=== PATIENT | male | born 1940 | race Caucasian/White ===

== ENCOUNTER → 2020-12-12 | Outpatient (CLI) | payer MEDICARE ==
[~2020-12-12] MED LIST: APIX5TAB PO; ASCO100018 PO; ATOR20TA37 PO; CALC-534 PO; CHOL10003 PO; CYCL10TA2 PO; DIPH25CA61 PO; DULA1.5P SC; ERGO500017 PO; HYDR-2214 PO; ICOS1CAP PO; INSU300I SC; IPRA15SP NAS; LIDO700A20 TD; LOSA100T14 PO; MELA5TAB14 PO; METF500T27 PO; METO25TA35 PO; MIRALAX PO; MULT-658 PO; OXYB5TAB10 PO; POTASSIUM PO; PREG150C PO; SIME125C67 PO; TAMS-11 PO; VITAMIN E PO; ZOLP5TAB6 PO; [UNRECOGNIZED DRUG - CODE] PO
[2020-12-12 12:13] LABS: MICROSCOPIC INDICATED
[2020-12-12 12:15] LABS: BASOPHILS % (AUTO) 1 % (0-1); EOSINOPHILS % (AUTO) 2 % (1-7); LYMPHOCYTES % (AUTO) 34 % (22-44); MEAN CORPUSCULAR HEMOGLOBIN 29.8 pg (27.5-34.5); MEAN CORPUSCULAR HGB CONC 33.3 g/dL (33.2-36.2); MEAN PLATELET VOLUME 10.3 fL (7.4-10.4); MONOCYTES % (AUTO) 9 % (2-9); NEUTROPHILS % (AUTO) 54 % (42-75); PLATELET COUNT 134 x10^3/uL (130-400); RED CELL DISTRIBUTION WIDTH 13.9 % (9.4-14.8)
[2020-12-12 12:19] LABS: INTERNATIONAL NORMALIZED RATIO 1.1 (0.93-1.1); PROTHROMBIN TIME 11.8 Seconds (9.6-11.5)
[2020-12-12 12:20] LABS: ALANINE AMINOTRANSFERASE 16 U/L (12-78); ALBUMIN 3.4 g/dL (3.4-5.0); CALCIUM 8.4 mg/dL (8.5-10.1); CREATININE 0.72 mg/dL (0.7-1.3)
[2020-12-12 12:23] LABS: ALKALINE PHOSPHATASE 104 U/L (45-117); BILIRUBIN,TOTAL 0.6 mg/dL (0.2-1.0); TOTAL PROTEIN 6.6 g/dL (6.4-8.2)
[2020-12-12 12:29] LABS: ANION GAP 6 mmol/L (5-15); CHLORIDE 109 mmol/L (98-107)
== END | disposition home or self-care (01) ==
LOC: STAR 11:23
PROVIDERS: ATTEND Urology
DX: Z01.818 Encounter for other preprocedural examination (principal); N40.1 Benign prostatic hyperplasia with lower urinary tract symptoms; I44.0 Atrioventricular block, first degree; I45.10 Unspecified right bundle-branch block
CPT/HCPCS: 36415; 80053; 81001; 85025; 85610; 87077; 87086; 87106; 87186; 93005

== ENCOUNTER 2020-12-23 05:39 | Inpatient (IN) | payer MEDICARE ==
[~2020-12-23] VITALS: Ht 175.3 cm; Wt 90.3 kg
[2020-12-23] MEDS ORDERED: LACTATED RINGERS 1,000 ML IV SCH (06:30)
[2020-12-23] MEDS ORDERED: CHLORHEXIDINE 15 ML UDC PO ONE (06:30)
[2020-12-23] MEDS ORDERED: FENTANYL PF 250 MCG/5ML ONE (06:35)
[2020-12-23] MEDS ORDERED: PROPOFOL 10 MG/ML, 20ML ONE (06:37)
[2020-12-23] MEDS ORDERED: ROCURONIUM 10MG/ML,5ML ONE (06:37)
[2020-12-23] MEDS ORDERED: GLYCOPYRROLATE 0.2MG/1ML, 5ML ONE (06:37)
[2020-12-23] MEDS ORDERED: NEOSTIGMINE 1 MG/ML, 10ML ONE (06:37)
[2020-12-23 06:49] VITALS: BP 109/70
[2020-12-23] MEDS ORDERED: CIPROFLOXACIN/PMX 400MG/200ML 0 ML ONE (07:01)
[2020-12-23] MEDS ORDERED: MEPERIDINE/PF 25MG/0.5ML IVPush PRN (07:30)
[2020-12-23] MEDS ORDERED: ONDANSETRON 2MG/ML, 2ML IVPush PRN (07:30)
[2020-12-23] MEDS ORDERED: LABETALOL 5MG/ML, 20ML IV PRN (07:30)
[2020-12-23] MEDS ORDERED: ACETAMINOPHEN 325 MG TABLET PO PRN (07:30)
[2020-12-23] MEDS ORDERED: hydrALAzine 20 MG/ML, 1ML IV PRN (07:30)
[2020-12-23] MEDS ORDERED: OXYcodone 5 MG/5 ML ORAL.SOL UDC PO PRN (07:30)
[2020-12-23] MEDS ORDERED: HYDROmorphone 1 MG/ML, 1ML INJ IVPush PRN (07:30)
[2020-12-23] MEDS ORDERED: morphine SULFATE 10 MG/ML, 1ML IVPush PRN (07:30)
[2020-12-23] MEDS ORDERED: AMPICILLIN 2 GM ONE (07:32)
[2020-12-23] MEDS ORDERED: GENTAMICIN 80 MG/2 ML ONE (07:33)
[2020-12-23] MEDS ORDERED: FENTANYL PF 100 MCG/2ML ONE (08:54)
[2020-12-23] MEDS ORDERED: OXYcodone 5 MG/5 ML ORAL.SOL UDC ONE (08:54)
[2020-12-23] MEDS: FENTANYL PF 100 MCG/2ML IV PRN ×2 (08:57→09:03)
[2020-12-23] MEDS ORDERED: KETOROLAC 30 MG/1 ML ONE (09:17)
[2020-12-23] MEDS ORDERED: KETOROLAC 30 MG/1 ML IVPush SCH (09:30)
[2020-12-23 10:08] VITALS: BP 117/67
[2020-12-23] MEDS: INSULIN LISPRO 100 UNITS/ML, PEN LOW DOSE SS SQ-INSULIN SCH ×3 (11:00→21:00)
[2020-12-23] MEDS ORDERED: ONDANSETRON 2MG/ML, 2ML IV PRN (11:00)
[2020-12-23] MEDS ORDERED: LIDODERM 5% PATCH TD PRN (11:00)
[2020-12-23] MEDS ORDERED: D5%-LACTATED RINGERS 1,000 ML IV SCH (11:00)
[2020-12-23] MEDS: CIPROFLOXACIN/PMX 400MG/200ML 200 ML IVPB SCH (13:17)
[2020-12-23] MEDS: AMPICILLIN 1 GM in SODIUM CHLORIDE 0.9% 50 ML IVPB SCH ×2 (13:18→19:32)
[2020-12-23 13:28] VITALS: BP 123/66
[2020-12-23] MEDS: KETOROLAC 30 MG/1 ML IV SCH ×2 (15:49→21:06)
[2020-12-23] MEDS: CYCLOBENZAPRINE 10 MG TABLET PO SCH ×2 (15:49→21:06)
[2020-12-23] MEDS: PREGABALIN 150 MG CAPSULE PO SCH ×2 (15:49→21:06)
[2020-12-23 16:37] VITALS: BP 156/79
[2020-12-23 20:06] VITALS: BP 138/71
[2020-12-24] MEDS: CIPROFLOXACIN/PMX 400MG/200ML 200 ML IVPB SCH (00:25)
[2020-12-24] MEDS: HYDROcodone/APAP 5/325 TABLET PO PRN ×2 (00:25→06:26)
[2020-12-24 00:30] VITALS: BP 118/73
[2020-12-24] MEDS: KETOROLAC 30 MG/1 ML IV SCH ×3 (03:20→15:30)
[2020-12-24 04:35] VITALS: BP 112/70
[2020-12-24 05:35] LABS: ANION GAP 5 mmol/L (5-15); CALCIUM 8.4 mg/dL (8.5-10.1); CHLORIDE 108 mmol/L (98-107); CREATININE 0.78 mg/dL (0.7-1.3)
[2020-12-24] MEDS: INSULIN LISPRO 100 UNITS/ML, PEN LOW DOSE SS SQ-INSULIN SCH ×2 (06:23→12:24)
[2020-12-24 07:14] VITALS: BP 128/59
[2020-12-24] MEDS ORDERED: CHOLECALCIFEROL 5,000u TAB PO SCH (09:00)
[2020-12-24] MEDS ORDERED: IPRATROPIUM NASAL 0.03%, 30ML NAS SCH (09:00)
[2020-12-24] MEDS ORDERED: TAMSULOSIN 0.4 MG CAP.ER.24H PO SCH (09:00)
[2020-12-24] MEDS ORDERED: LOSARTAN 100 MG TAB PO SCH (09:00)
[2020-12-24] MEDS ORDERED: POLYETHYLENE GLYCOL 17 GM PACKET PO SCH (09:00)
[2020-12-24] MEDS ORDERED: METOPROLOL TARTRATE 25 MG TAB PO SCH (09:00)
[2020-12-24] MEDS: CYCLOBENZAPRINE 10 MG TABLET PO SCH ×2 (09:41→15:30)
[2020-12-24] MEDS: PREGABALIN 150 MG CAPSULE PO SCH ×2 (09:42→15:29)
[2020-12-24 13:10] VITALS: BP 125/61
[2020-12-24 16:20] VITALS: BP 158/70
== END 2020-12-24 16:40 | disposition home or self-care (01) | DRG 714 ==
LOC: OUT 05:39 → 4NE 10:04 → OUT 19:26 → 4NE 19:27 → DCLOUNGE 12-24 16:30
PROVIDERS: ADMIT Urology; ATTEND Urology
PROC: 0VT08ZZ Resection of Prostate, Via Natural or Artificial Opening Endoscopic (ICD-10-PCS; principal; 2020-12-23 07:30)
DX: N40.1 Benign prostatic hyperplasia with lower urinary tract symptoms (principal); Z20.822 Contact with and (suspected) exposure to COVID-19; R33.8 Other retention of urine
CPT/HCPCS: 36415; 80048; 82962; 85014; 85018; 88305; 88342; G0378; J0290; J0744; J1885; J2704; J2710; J3010; U0005; J1580; J1815; J7120; Q0177; U0003